=== PATIENT | female | born 1985 | race Caucasian/White ===

== ENCOUNTER 2024-02-12 19:40 | Observation (INO) | payer OTHER ==
[~2024-02-12] VITALS: Ht 149.9 cm; Wt 77.6 kg
[2024-02-12 19:54] VITALS: BP 99/70; PULSE 82; RESP 18; TEMP 98.1; O2SAT 98
[2024-02-12 20:29] LABS: BASOPHILS # (AUTO) 0.1 K/uL (0.00-0.22); BASOPHILS % (AUTO) 0.7 % (0.0-2.0); EOSINOPHILS # (AUTO) 0.1 K/uL (0-0.4); EOSINOPHILS % (AUTO) 1.5 % (0.0-4.0); HEMATOCRIT 32.8 % (36-48); HEMOGLOBIN 11.3 g/dL (12.0-16.0); LYMPHOCYTES # (AUTO) 2.1 K/uL (2.5-16.5); LYMPHOCYTES % (AUTO) 24.5 % (20.5-51.1); MEAN CORPUSCULAR HEMOGLOBIN 33 pg (27-31); MEAN CORPUSCULAR HGB CONC 34 g/dL (33-37); MEAN CORPUSCULAR VOLUME 94.7 fL (80-94); MONOCYTES # (AUTO) 0.4 K/uL (0.8-1.0); MONOCYTES % (AUTO) 5.1 % (1.7-9.3); NEUTROPHILS # (AUTO) 5.8 K/uL (1.8-7.7); NEUTROPHILS % (AUTO) 68.2 % (42.2-75.2); PLATELET COUNT (AUTO) 344 K/uL (140-450); RED BLOOD CELL COUNT(AUTO) 3.46 MIL/uL (4.20-5.40); RED CELL DISTRIBUTION WIDTH 14.2 % (11.6-13.7); WHITE BLOOD COUNT (AUTO) 8.4 K/uL (4.8-10.8)
[2024-02-12 20:55] LABS: ANION GAP 15.1 (8-16); CALCIUM 8.8 mg/dL (8.5-10.1); CARBON DIOXIDE 25.6 mmol/L (21-32); CREATININE 0.7 mg/dL (0.6-1.3); POTASSIUM 3.7 mmol/L (3.5-5.1)
[2024-02-12 21:01] LABS: ALBUMIN 3.3 g/dL (3.4-5.0); BILIRUBIN,DIRECT 0.1 mg/dL (0.0-0.3); TOTAL BILIRUBIN 0.2 mg/dL (0.0-1.0); TOTAL PROTEIN, SERUM 7.1 g/dL (6.4-8.2)
[2024-02-12] MEDS: NACL 0.9% 1,000 ML IV ONE ×2 (21:03→21:46)
[2024-02-12] MEDS: ONDANSETRON 4 MG/2 ML VIAL IVP ONE (21:04)
[2024-02-12] MEDS: MORPHINE SULFATE 4 MG/ML SYR IVP ONE (21:04)
[2024-02-12] MEDS: KETOROLAC 30 MG/ML VIAL IVP ONE (22:03)
[2024-02-12 22:28] LABS: APPEARANCE,URINE CLEAR (CLEAR); BILIRUBIN,URINE NEGATIVE (NEGATIVE); BLOOD, URINE NEGATIVE (NEGATIVE); COLOR,URINE YELLOW (YELLOW); LEUKOCYTE ESTERASE ,URINE NEGATIVE (NEGATIVE); NITRITE, URINE NEGATIVE (NEGATIVE); PH,URINE 6.5 (5.0-9.0); PROTEIN,URINE NEGATIVE (NEGATIVE); UGLUCOSE NEGATIVE (NEGATIVE); UROBILINOGEN,URINE 0.2 EU/dL (0.2 - 1)
[2024-02-12] MEDS ORDERED: KCL 20 MEQ IN 100 mL PREMIX 200 ML IV PRN (23:35)
[2024-02-12] MEDS ORDERED: MAGNESIUM OXIDE 400 MG TAB PO PRN (23:35)
[2024-02-12] MEDS ORDERED: MAG SULF 2000 MG/WATER PREMIX 50 ML IV PRN (23:35)
[2024-02-12] MEDS ORDERED: POTASSIUM CHLORIDE 10 MEQ TABER PO PRN (23:35)
[2024-02-12] MEDS: NACL 0.9% 1,000 ML IV SCH (23:45)
[2024-02-13] MEDS ORDERED: PIPERACILLIN/TAZOBACTAM 3.375 GM VIAL IV ONE (00:12)
[2024-02-13] MEDS: PIPERACILLIN/TAZOBACTAM 3.375 GM in DEXTROSE 5% 50 ML IV SCH (00:20)
[2024-02-13] MEDS: HYDROcodone/APAP 5/325 MG 1 TAB TAB PO PRN (00:29)
[2024-02-13 02:05] VITALS: BP 100/53; PULSE 70; RESP 20; TEMP 97.7; O2SAT 98
[2024-02-13] MEDS: MORPHINE SULFATE 4 MG/ML SYR IVP PRN (03:52)
[2024-02-13 04:00] VITALS: BP 97/53; PULSE 64; RESP 18; TEMP 97.6; O2SAT 98
[2024-02-13] MEDS: PIPERACILLIN/TAZOBACTAM 3.375 GM VIAL IV ONE (05:52)
[2024-02-13 06:39] LABS: BASOPHILS % (AUTO) 0.3 % (0.0-2.0); EOSINOPHILS # (AUTO) 0.1 K/uL (0-0.4); EOSINOPHILS % (AUTO) 1.1 % (0.0-4.0); HEMATOCRIT 25.8 % (36-48); HEMOGLOBIN 8.9 g/dL (12.0-16.0); LYMPHOCYTES # (AUTO) 2.1 K/uL (2.5-16.5); LYMPHOCYTES % (AUTO) 23.8 % (20.5-51.1); MEAN CORPUSCULAR HEMOGLOBIN 33 pg (27-31); MEAN CORPUSCULAR HGB CONC 35 g/dL (33-37); MONOCYTES # (AUTO) 0.5 K/uL (0.8-1.0); MONOCYTES % (AUTO) 5.7 % (1.7-9.3); NEUTROPHILS # (AUTO) 6.2 K/uL (1.8-7.7); NEUTROPHILS % (AUTO) 69.1 % (42.2-75.2); PLATELET COUNT (AUTO) 271 K/uL (140-450); RED BLOOD CELL COUNT(AUTO) 2.69 MIL/uL (4.20-5.40); RED CELL DISTRIBUTION WIDTH 14.1 % (11.6-13.7)
[2024-02-13 06:55] LABS: ALBUMIN 2.7 g/dL (3.4-5.0); CALCIUM 7.5 mg/dL (8.5-10.1); CARBON DIOXIDE 23.6 mmol/L (21-32); CREATININE 0.4 mg/dL (0.6-1.3); POTASSIUM 3.6 mmol/L (3.5-5.1); TOTAL BILIRUBIN 0.3 mg/dL (0.0-1.0)
[2024-02-13 08:00] VITALS: BP 92/58; PULSE 64; PULSE 78; RESP 18; TEMP 97.6; O2SAT 96; O2SAT 98
[2024-02-13] MEDS: ACETAMINOPHEN 325 MG TAB PO PRN (09:51)
[2024-02-13] MEDS: NACL 0.9% 500 ML IV STA (11:11)
[2024-02-13] MEDS: ACETAMINOPHEN 100 ML IV ONE (11:48)
[2024-02-13] MEDS: ONDANSETRON 4 MG/2 ML VIAL ONE ×2 (11:52)
[2024-02-13] MEDS: PROPOFOL 200 MG/20 ML VIAL IV ONE ×2 (11:52→12:37)
[2024-02-13] MEDS: ROCURONIUM 50 MG/5 ML VIAL IV ONE (11:52)
[2024-02-13] MEDS: SUCCINYLCHOLINE CHLORIDE 200 MG/10 ML VIAL IVP ONE (11:52)
[2024-02-13] MEDS: fentaNYL citrate 0.05 MG/ML VIAL ONE (11:52)
[2024-02-13] MEDS: DEXAMETHASONE 4 MG/ML VIAL ONE ×2 (11:52)
[2024-02-13] MEDS: MIDAZOLAM 2 MG/2 ML VIAL ONE (11:52)
[2024-02-13] MEDS ORDERED: SIMETHICONE 80 MG TAB.CHEW PO PRN (12:00)
[2024-02-13] MEDS ORDERED: oxyCODONE/APAP 5/325 MG 1 TAB TAB PO PRN ×2 (12:00)
[2024-02-13] MEDS ORDERED: TEMAZEPAM 15 MG CAP PO PRN (12:00)
[2024-02-13] MEDS ORDERED: KETOROLAC 30 MG/ML VIAL IVP PRN (12:00)
[2024-02-13] MEDS ORDERED: HYDROmorphone 2 MG TAB PO PRN (12:00)
[2024-02-13] MEDS: BUPIVACAINE MPF 0.25% 10 ML VIAL INJ ONE (12:22)
[2024-02-13] MEDS: BUPIVACAINE-MPF 0.25% 30 ML VIAL INJ ONE (12:24)
[2024-02-13] MEDS: ePHEDrine 50 MG/ML VIAL ONE (12:25)
[2024-02-13] MEDS: KETOROLAC 30 MG/ML VIAL ONE (13:05)
[2024-02-13] MEDS: PHENYLEPHRINE 10 MG/ML VIAL ONE (13:05)
[2024-02-13] MEDS: SUGAMMADEX SODIUM 200 MG/2 ML VIAL IV ONE (13:09)
[2024-02-13] MEDS: HYDROmorphone PFS 2 MG/ML SYR IVP PRN (13:50)
[2024-02-13 16:00] VITALS: BP 118/62; PULSE 78; RESP 18; TEMP 98.5; O2SAT 96
[2024-02-13] MEDS: IBUPROFEN 800 MG TAB PO PRN (16:39)
[2024-02-13 20:00] VITALS: BP 117/63; PULSE 110; RESP 18; O2SAT 99
[2024-02-13] MEDS: DOCUSATE SOD/SENNA 50/8.6 MG 1 TAB PO SCH (21:00)
[2024-02-13] MEDS: MEDS-TO-BEDS MC SCH (21:35)
[2024-02-13 21:59] VITALS: PULSE 95; RESP 17; O2SAT 97
[2024-02-13] MEDS: ONDANSETRON 4 MG/2 ML VIAL IVP PRN (22:52)
[2024-02-14 04:00] VITALS: BP 104/67; PULSE 74; RESP 18; TEMP 97.6; O2SAT 97
[2024-02-14 06:58] LABS: BASOPHILS % (AUTO) 0.1 % (0.0-2.0); HEMATOCRIT 24.2 % (36-48); HEMOGLOBIN 8.4 g/dL (12.0-16.0); LYMPHOCYTES # (AUTO) 1.1 K/uL (2.5-16.5); MEAN CORPUSCULAR HEMOGLOBIN 33 pg (27-31); MEAN CORPUSCULAR HGB CONC 35 g/dL (33-37); MONOCYTES # (AUTO) 0.4 K/uL (0.8-1.0); MONOCYTES % (AUTO) 4.1 % (1.7-9.3); NEUTROPHILS # (AUTO) 7.5 K/uL (1.8-7.7); NEUTROPHILS % (AUTO) 83.8 % (42.2-75.2); PLATELET COUNT (AUTO) 266 K/uL (140-450); RED BLOOD CELL COUNT(AUTO) 2.52 MIL/uL (4.20-5.40); RED CELL DISTRIBUTION WIDTH 14.2 % (11.6-13.7); WHITE BLOOD COUNT (AUTO) 8.9 K/uL (4.8-10.8)
[2024-02-14 07:15] LABS: ALBUMIN 2.7 g/dL (3.4-5.0); ANION GAP 12.2 (8-16); CALCIUM 8.1 mg/dL (8.5-10.1); CARBON DIOXIDE 26.3 mmol/L (21-32); CREATININE 0.5 mg/dL (0.6-1.3); MAGNESIUM 2.2 mg/dL (1.8-2.4); POTASSIUM 3.5 mmol/L (3.5-5.1); TOTAL BILIRUBIN 0.3 mg/dL (0.0-1.0); TOTAL PROTEIN, SERUM 6.2 g/dL (6.4-8.2)
[2024-02-14 08:00] VITALS: BP 99/58; PULSE 78; RESP 16; TEMP 98.5; O2SAT 96
[2024-02-14] MEDS ORDERED: TOR10 PO (13:26)
== END 2024-02-14 16:30 | disposition home or self-care (01) ==
LOC: MED 19:40 → EDBD 19:40 → MTU 23:38
PROVIDERS: ADMIT Hospitalist; ATTEND Hospitalist
DX: O00.101 Right tubal pregnancy without intrauterine pregnancy (principal); J45.909 Unspecified asthma, uncomplicated; Z79.899 Other long term (current) drug therapy
CPT/HCPCS: 36415; 59151; 76830; 80048; 80053; 80076; 81003; 83605; 83690; 83735; 84702; 85025; 86886; 86900; 86901; 87081; 96365; 96366; 96375; 96376; 99291; G0378; J0330; J1100; J1170; J1885; J2250; J2270; J2370; J2405; J2543; J2704; J3010; J3490; J7030; J7060; Q0092